=== PATIENT | female | born 1995 | race Caucasian/White ===

== ENCOUNTER 2018-05-06 19:54 | Emergency (ER) | payer MEDICAID ==
[~2018-05-06] VITALS: Ht 157.5 cm; Wt 65.3 kg
[2018-05-06 20:23] VITALS: Ht 157.5 cm; Wt 65.3 kg
[2018-05-06 21:41] VITALS: BP 123/72
== END 2018-05-06 21:41 | disposition home or self-care (01) ==
LOC: ED 19:54
DX: B02.9 Zoster without complications (principal); Z88.0 Allergy status to penicillin; Z79.3 Long term (current) use of hormonal contraceptives

== ENCOUNTER 2020-07-19 14:06 | Emergency (ER) | payer MEDICAID ==
[~2020-07-19] VITALS: Ht 154.9 cm; Wt 59.0 kg
[2020-07-19 14:09] VITALS: Ht 154.9 cm; Wt 59.0 kg
[2020-07-19 15:45] LABS: CALCIUM 8.6 mg/dL (8.5-10.1); CARBON DIOXIDE 27.2 mmol/L (21-32); CHLORIDE SERUM 103 mmol/L (98-107); CREATININE SERUM 0.7 mg/dL (0.6-1.0); GFR1 > 60 mL/min; GLUCOSE SERUM 106 mg/dL (74-106); SODIUM SERUM 138 mmol/L (136-145)
[2020-07-19 15:50] LABS: ALBUMIN 3.8 g/dL (3.4-5.0); ALKALINE PHOSPHATASE 76 U/L (46-116); ALT/SGPT 25 U/L (14-59); AST/SGOT 42 U/L (15-37); BILIRUBIN TOTAL 0.6 mg/dL (0.20-1.00)
[2020-07-19 15:52] LABS: BASOPHIL % 0.4 % (0-2); PLATELET COUNT 227 x10^3mcL (130-400); RED CELL DISTRIBUTION WIDTH 13.7 % (11.5-14.5)
[2020-07-19 17:27] VITALS: BP 102/55
== END 2020-07-19 17:27 | disposition home or self-care (01) ==
LOC: ED 14:06
PROVIDERS: Emergency Medicine
DX: R10.816 Epigastric abdominal tenderness (principal); Z88.0 Allergy status to penicillin
CPT/HCPCS: 85378; J2270; J7030